=== PATIENT | female | born 1950 | race Caucasian/White ===

== ENCOUNTER 2019-05-17 11:27 | Day surgery (SDC) | payer OTHER ==
[2019-05-17] MEDS ORDERED: PROPOFOL 40 ML (13:28)
[2019-05-17] MEDS ORDERED: LIDOCAINE 100 MG SYRINGE (13:28)
[2019-05-17] MEDS ORDERED: FENTAnyl 50 MCG/ML VIAL (13:29)
== END 2019-05-17 15:02 | disposition home or self-care (01) ==
LOC: GIL 11:27
DX: K21.0 Gastro-esophageal reflux disease with esophagitis (principal); K22.2 Esophageal obstruction; K44.9 Diaphragmatic hernia without obstruction or gangrene; K29.70 Gastritis, unspecified, without bleeding
CPT/HCPCS: 43239; 88305; 88312